=== PATIENT | female | born 1985 | race African-American/Black ===

== ENCOUNTER 2017-02-08 17:16 | Emergency (ER) | payer MEDICAID ==
--- NOTE | 2017-02-08 17:46 | ER Document Report ---
ED Medical Screen (RME) - General Stated Complaint: CHEST PAIN Time seen by provider: 17:43 Mode of Arrival: Ambulatory Information source: Patient Notes: 31-year-old female presents to ED for chest pain tightness with difficulty breathing seems her right hand is also painful. States she also has upper back pain for the last 4 days. Denies any history of asthma. She is on Depo is having vaginal spotting I have greeted and performed a rapid initial assessment of this patient. A comprehensive ED assessment and evaluation of the patient, analysis of test results and completion of medical decision making process will be conducted by an additional ED providers. TRAVEL OUTSIDE OF THE [place] IN LAST 30 DAYS: No - Related Data Allergies/Adverse Reactions: No Known Allergies Allergy (Verified 12/10/15 11:40) Past Medical History Pulmonary Medical History: Denies: Hx Tuberculosis Past Surgical History: Reports: Hx Orthopedic Surgery - left knee. Denies: Hx Appendectomy, Hx Bowel Surgery, Hx Section, Hx Cholecystectomy, Hx Coronary Artery Bypass Graft, Hx Gastric Bypass Surgery, Hx Herniorrhaphy, Hx Hysterectomy, Hx Mastectomy, Hx Pacemaker, Hx Tonsillectomy, Hx Tubal Ligation - Immunizations Hx Diphtheria, Pertussis, Tetanus Vaccination: Yes Physical Exam - Vital signs Vitals: Temp Pulse Resp BP Pulse Ox 99.3 F 77 20 137/80 H 100 02/08/17 17:40 02/08/17 17:40 02/08/17 17:40 02/08/17 17:40 02/08/17 17:40 Course - Vital Signs Vital signs: Temp Pulse Resp BP Pulse Ox 99.3 F 77 20 137/80 H 100 02/08/17 17:40 02/08/17 17:40 02/08/17 17:40 02/08/17 17:40 02/08/17 17:40
[2017-02-08 18:29] LABS: ABSOLUTE BASOPHILS # (AUTO) 0.1 10^3/uL (0.0-0.2); ABSOLUTE EOSINOPHILS # (AUTO) 0.2 10^3/uL (0.0-0.6); ABSOLUTE LYMPHOCYTES (AUTO) 2.7 10^3/uL (0.5-4.7); ABSOLUTE MONOCYTES (AUTO) 0.4 10^3/uL (0.1-1.4); ABSOLUTE NEUT (AUTO) 4.7 10^3/uL (1.7-8.2); BASOPHILS % (AUTO) 1.1 % (0-2); EOSINOPHILS % (AUTO) 2.9 % (0-6); HEMATOCRIT 43.7 % (36.0-47.0); HEMOGLOBIN 14.5 g/dL (12.0-15.5); HGB HCT DIFFERENCE -0.2; LYMPHOCYTES % (AUTO) 33.1 % (13-45); MEAN CORPUSCULAR HEMOGLOBIN 29.6 pg (27.0-33.4); MEAN CORPUSCULAR HGB CONC 33.2 g/dL (32.0-36.0); MEAN CORPUSCULAR VOLUME 89 fl (80-97); MONOCYTES % (AUTO) 4.8 % (3-13); RED BLOOD COUNT 4.88 10^6/uL (3.72-5.28); RED CELL DISTRIBUTION WIDTH 12.8 % (11.5-14.0); SEGMENTED NEUTROPHILS % (AUTO) 58.1 % (42-78)
[2017-02-08 18:55] LABS: ALANINE AMINOTRANSFERASE 28 U/L (9-52); ALBUMIN 4.4 g/dL (3.5-5.0); ALKALINE PHOSPHATASE 59 U/L (38-126); ANION GAP 14 (5-19); ASPARTATE AMINO TRANSFERASE 19 U/L (14-36); BILIRUBIN,DIRECT 0.3 mg/dL (0.0-0.4); BILIRUBIN,TOTAL 0.6 mg/dL (0.2-1.3); BLOOD UREA NITROGEN 13 mg/dL (7-20); CALCIUM 10.1 mg/dL (8.4-10.2); CARBON DIOXIDE 21 mmol/L (22-30); CHLORIDE 111 mmol/L (98-107); CREATINE KINASE 182 U/L (30-135); CREATININE RESULT 1.05 mg/dL (0.52-1.25); GLUCOSE 88 mg/dL (75-110); POTASSIUM 4.2 mmol/L (3.6-5.0); SODIUM 145.9 mmol/L (137-145); TOTAL PROTEIN 7.1 g/dL (6.3-8.2)
[2017-02-08 19:04] LABS: CREATINE KINASE MB < 0.22 ng/mL (<4.55); TROPONIN I < 0.012 ng/mL
--- NOTE | 2017-02-08 20:26 | EKG REPORT ---
SEVERITY:- NORMAL ECG - SINUS RHYTHM : Confirmed by: Adelina Case 08-Feb-2017 20:25:12
[2017-02-08] MEDS ORDERED: ACETAMINOPHEN 325 MG TABLET PO ONE (20:54)
[2017-02-08] MEDS ORDERED: CYCLOBENZAPRINE HCL 10 MG TABLET PO ONE (23:25)
[2017-02-08] MEDS ORDERED: NAPROXEN 250 MG TABLET PO ONE (23:26)
[2017-02-08] MEDS ORDERED: HYDROCODONE/ACETAMINOPHEN 5-325 MG TABLET PO ONE (23:26)
--- NOTE | 2017-02-08 23:32 | ER Document Report ---
ED General - General Chief Complaint: Chest Pain Stated Complaint: CHEST PAIN Time seen by provider: 22:45 Mode of Arrival: Ambulatory Information source: Patient, [facility] Records Notes: This 31-year-old female patient comes in for treatment complaining of one-week history of anterior chest pain and tightness with difficulty breathing, right hand painful, and pain in her mid upper back. 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 She had been out of work for over a month due to transportation issues which she finally resolved. She does get the Depo shot and is due in one to 2 weeks for her next dose. She does not smoke. TRAVEL OUTSIDE OF THE [place] 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 [employer] Lives with: Friend Family History: Reviewed & Not Pertinent Patient has suicidal ideation: No Patient has homicidal ideation: No - Medical History Medical History: Negative Past Surgical History: Reports: Hx Orthopedic Surgery - left knee - Immunizations Hx Diphtheria, Pertussis, Tetanus Vaccination: Yes Review of Systems - Review of Systems Constitutional: No symptoms reported EENT: No symptoms reported Cardiovascular: See HPI Respiratory: No symptoms reported Gastrointestinal: No symptoms reported Genitourinary: No symptoms reported Female Genitourinary: No symptoms reported, Last menstrual period - On the Depo shot Musculoskeletal: See HPI, Back pain Skin: No symptoms reported Hematologic/Lymphatic: No symptoms reported Neurological/Psychological: No symptoms reported Physical Exam - Vital signs Vitals: Temp Pulse Resp BP Pulse Ox 99.3 F 77 20 137/80 H 100 02/08/17 17:40 02/08/17 17:40 02/08/17 17:40 02/08/17 17:40 02/08/17 17:40 Interpretation: Normal - General General appearance: Appears well, Alert In distress: None - HEENT Head: Normocephalic, Atraumatic Eyes: Normal Pupils: PERRL Neck: Normal - Respiratory Respiratory status: No respiratory distress Chest status: Tender Breath sounds: Normal Chest palpation: Tender - Tender to palpate the anterior chest wall - Cardiovascular Rhythm: Regular Heart sounds: Normal auscultation Murmur: No - Abdominal Inspection: Normal Bowel sounds: Normal Tenderness: Tender - Minimally tender in the lower anterior abdominal muscle wall. - Back Back: Tender - Tenderness in the interscapular thoracic back muscles and some tenderness in the lumbar back muscles - Extremities General upper extremity: Other - Right hand muscles and the thenar region are little bit tender General lower extremity: Normal inspection - Neurological Neuro grossly intact: Yes - Psychological Associated symptoms: Normal affect, Normal mood - Skin Skin Temperature: Warm Skin Moisture: Dry Skin Color: Normal Course - Vital Signs Vital signs: Temp Pulse Resp BP Pulse Ox 99.3 F 77 20 137/80 H 100 02/08/17 17:40 02/08/17 17:40 02/08/17 17:40 02/08/17 17:40 02/08/17 17:40 - Laboratory Result Diagrams: 02/08/17 18:15 02/08/17 18:15 Laboratory results interpreted by me: 02/08/17 18:15 Sodium 145.9 H Chloride 111 H Carbon Dioxide 21 L Creatine Kinase 182 H - Diagnostic Test Radiology reviewed: Image reviewed, Reports reviewed - Chest x-ray is unremarkable - EKG Interpretation by Me EKG shows normal: Sinus rhythm, [place], Intervals, QRS Complexes, ST-T Waves Rate: Normal - 81 Rhythm: NSR Discharge - Discharge Clinical Impression: Hand pain, right, Muscle strain Chest pain Qualifiers: Chest pain type: unspecified Qualified Code(s): R07.9 - Chest pain, unspecified Back pain Qualifiers: Back pain location: thoracic back pain Chronicity: acute Back pain laterality: bilateral Qualified Code(s): M54.6 - Pain in thoracic spine Condition: Stable Disposition: HOME, SELF-CARE Additional Instructions: Muscle Strain: You have strained the muscles in your chest wall, back and hands. This often occurs with repetative muscle straining.. The seriousness of a strain varies. Some strains heal within days, others cause problems for months. The usual treatment of a muscle strain is rest. Call the doctor immediately if pain or swelling becomes severe, or if numbness or discoloration develop. Overuse Syndrome: Overuse syndrome or repetitive-motion syndrome is inflammation caused by repeated activity. Many daily activities cause minor, microscopic injury to muscles, tendons, and ligaments. With adequate rest, the tissues repair themselves. But sometimes a repetitive movement or new activity is too much for the tissue to tolerate, and inflammation results. Examples of overuse syndrome are tendonitis, bursitis, muscle inflammation, and joint capsulitis. Rest. Stop or decrease the activity that created the problem. You may need a sling or splint. For the first couple of days after symptoms begin, ice packs can be helpful. When the symptoms start improving, you can switch to hot packs followed by stretching and motion of the painful area. Antiinflammatory medicine such as ibuprofen can help. Call the doctor or return if there is fever, increasing pain, spreading redness, numbness, weakness, or other significant change. TAKE THE MEDICATIONS PRESCRIBED. IF THE MUSCLE RELAXER MAKE YOU DROWSY, THEN ONLY TAKE IT AFTER WORK AND AT BEDTIME. TRY TO REST YOUR MUSCLES MUCH POSSIBLE. FOLLOW UP WITH A LOCAL MEDICAL DOCTOR IF NOT IMPROVING. Prescriptions: Cyclobenzaprine HCl [Flexeril 5 mg Tablet] 5 mg PO TID PRN #15 tablet PRN Reason: Naproxen [Naprosyn 375 Mg Tablet] 375 mg PO BID #20 tablet
[2017-02-09 00:12] VITALS: BP 128/78
== END 2017-02-08 23:50 | disposition home or self-care (01) ==
LOC: ER 17:16
DX: T14.8 Other injury of unspecified body region (principal); X58.XXXA Exposure to other specified factors, initial encounter; R07.89 Other chest pain; R06.00 Dyspnea, unspecified; M79.641 Pain in right hand; M54.6 Pain in thoracic spine; Z79.3 Long term (current) use of hormonal contraceptives
CPT/HCPCS: 93005; 99284; 36415; 82553; 82550; 84703; 85025; 80053; 84484; 85379; 71010; 93010; J3490 ×3

== ENCOUNTER 2019-07-27 15:06 | Outpatient (CLI) | payer MEDICAID ==
[2019-07-27 15:53] LABS: APPEARANCE,URINE CLOUDY; BILIRUBIN,URINE NEGATIVE (NEGATIVE); COLOR,URINE YELLOW; GLUCOSE, URINE NEGATIVE (NEGATIVE); KETONES,URINE NEGATIVE (NEGATIVE); LEUKOCYTE ESTERASE,URINE SMALL (NEGATIVE); NITRITE,URINE NEGATIVE (NEGATIVE); PROTEIN,URINE 30 mg/dL (NEGATIVE); URINE SPECIFIC GRAVITY 1.023; UROBILINOGEN,URINE NEGATIVE mg/dL (<2.0)
[2019-07-27 16:13] LABS: URINE AMPHETAMINES SCREEN NEGATIVE; URINE BARBITURATES SCREEN NEGATIVE; URINE BENZODIAZEPINES SCREEN NEGATIVE; URINE METHADONE SCREEN NEGATIVE; URINE PHENCYCLIDINE SCREEN NEGATIVE
[2019-07-27 16:14] LABS: URINE COCAINE SCREEN NEGATIVE
[2019-07-27 16:17] LABS: URINE MARIJUANA (THC) SCREEN UNCONFIRMED POSITIVE
[2019-07-27 16:31] LABS: ABSOLUTE LYMPHOCYTES (AUTO) 1.5 10^3/uL (0.5-4.7); ABSOLUTE MONOCYTES (AUTO) 0.6 10^3/uL (0.1-1.4); ABSOLUTE NEUT (AUTO) 6.7 10^3/uL (1.7-8.2); BASOPHILS % (AUTO) 0.2 % (0-2); EOSINOPHILS % (AUTO) 0.6 % (0-6); HEMATOCRIT 38.2 % (36.0-47.0); HEMOGLOBIN 12.7 g/dL (12.0-15.5); MEAN CORPUSCULAR HEMOGLOBIN 28.7 pg (27.0-33.4); MEAN CORPUSCULAR HGB CONC 33.2 g/dL (32.0-36.0); MEAN CORPUSCULAR VOLUME 86 fl (80-97); MONOCYTES % (AUTO) 6.4 % (3-13); RED BLOOD COUNT 4.43 10^6/uL (3.72-5.28); SEGMENTED NEUTROPHILS % (AUTO) 75.8 % (42-78); TOTAL CELLS COUNTED % (AUTO) 100 %; WHITE BLOOD COUNT 8.9 10^3/uL (4.0-10.5)
[2019-07-27 16:51] LABS: PLATELET COUNT 92 10^3/uL (150-450)
--- NOTE | 2019-07-27 17:26 | Non Stress Test Report ---
Non Stress Test Datetime Report Generated by CPN: 07/27/2019 17:26 DEMOGRAPHIC Test Number: 1 EGA NST: 37.5 INDICATION Indication for Study: Ordered by Provider MONITORING Monitor Explained: Monitor Explained; Test Explained; Patient Verbalized Understanding Time on Monitor: 07/27/2019 15:33 Time off Monitor: 07/27/2019 16:30 NST Duration: 57 NST INTERVENTIONS NST Interventions: PO Hydration Physician Notified NST: A. Martinez CNM BABY A: [id number] BABY A Movement : Present Contraction Frequency : 2-5 FHR Baseline : 150 Accelerations : 15X15 Decelerations : None Variability : Moderate 6-25bpm NST Review: Meets Criteria for Reactive NST NST Review and Verified By : MARIA DE JESUS Torres Results: Reactive NST REPORT Report Trigger: Send Report
[2019-07-27 17:46] LABS: CHLAM PCR NOT DETECTED (NOT DETECT)
[2019-07-27 18:13] LABS: ALBUMIN 3.2 g/dL (3.5-5.0); ALKALINE PHOSPHATASE 149 U/L (38-126); ANION GAP 10 (5-19); ASPARTATE AMINO TRANSFERASE 22 U/L (14-36); BILIRUBIN,DIRECT 0.2 mg/dL (0.0-0.4); BILIRUBIN,TOTAL 0.3 mg/dL (0.2-1.3); BLOOD UREA NITROGEN 8 mg/dL (7-20); CALCIUM 9.7 mg/dL (8.4-10.2); CARBON DIOXIDE 18 mmol/L (22-30); CHLORIDE 108 mmol/L (98-107); GLUCOSE 90 mg/dL (75-110); POTASSIUM 4.2 mmol/L (3.6-5.0); TOTAL PROTEIN 5.8 g/dL (6.3-8.2); URIC ACID 5.5 mg/dL (2.5-6.2)
--- NOTE | 2019-07-27 18:13 | RADIOLOGY REPORT (SQ) ---
EXAM DESCRIPTION: U/S OB 14+ TRNABD 1GES W/O DOP COMPLETED DATE/TIME: 07/27/2019 5:50 pm REASON FOR STUDY: no care, dated by 2nd trimester us here COMPARISON: None. TECHNIQUE: Static and Dynamic grayscale imaging performed of gravid uterus using transabdominal appr oach. Additional selected color Doppler and spectral images recorded. All stored on PACS. LIMITATIONS: None. FINDINGS: FETUSES SEEN:1 EGA: 36 weeks 6 days Calculated using BPD,FL,HC,AC documented on images. No discrepancy with clinica l dates. HERON: 08/18/2019 EFW: 3,074 grams PERCENTILE: 61st STEPHANIE: 9.13 PLACENTA: Anterior grade 1 PRESENTATION: Cephalic. ANATOMY: HEART RATE: 149 beats per minute. FOUR CHAMBER HEART: Not confirmed THREE VESSEL CORD: Yes. CORD INSERTION: Not seen. KIDNEYS AND BLADDER: Visualized. Appear normal. STOMACH: Visualized. Appears normal. SPINE: Poorly seen. BRAIN AND LATERAL VENTRICLES: Poorly seen. OTHER: No other significant finding. MATERNAL ADNEXA: Maternal ovaries not visualized. CERVICAL LENGTH: Not seen. Closed. OTHER: No other significant finding. IMPRESSION: LIVING INTRAUTERINE . ESTIMATED GESTATIONAL AGE 36 weeks 6 days. No anomalies are seen. Evaluation is limited. Trimester of : Third trimester - 28 weeks to delivery. TECHNICAL DOCUMENTATION: JOB ID: [id number] [employer]- All Rights Reserved Reading location - IP/workstation name: [email or web address]
[2019-07-27 18:21] LABS: URINE CREATININE 218.8 mg/dL (16-327); URINE PROTEIN 8.9 mg/dL (<12)
[2019-07-29 07:36] LABS: HEPATITIS C VIRUS AB <0.1 s/co ratio (0.0-0.9)
[2019-07-30 07:06] LABS: HEPATITS B SURFACE ANTIGEN Negative (Negative)
== END 2019-07-27 19:19 | disposition home or self-care (01) ==
LOC: LC 15:06
PROVIDERS: ATTEND Obstetrics & Gynecology
DX: O47.1 False labor at or after 37 completed weeks of gestation (principal); Z3A.37 37 weeks gestation of pregnancy
CPT/HCPCS: 59025; 86900; 86901; 36415; 86850; 83615; 84156; 82570; 84550; 85025; 86762; 86592; 80053; 81001; 87081; 87340; 86701; 80307; 87491; 87591; 80361; 86803; 86804; 76805; G0480 ×2; 80349

== ENCOUNTER 2019-08-09 12:07 | Outpatient (CLI) | payer MEDICAID | END 2019-08-09 12:51 | disposition home or self-care (01) | LOC: LC 12:07 | PROVIDERS: ATTEND Student in an Organized Health Care Education/Training Program | PROC: 4A1HXCZ Monitoring of Products of Conception, Cardiac Rate, External Approach (ICD-10-PCS; principal; 2019-08-09) | DX: O99.333 Smoking (tobacco) complicating pregnancy, third trimester (principal); F17.210 Nicotine dependence, cigarettes, uncomplicated; Z3A.39 39 weeks gestation of pregnancy | CPT/HCPCS: 59025 ==

== ENCOUNTER 2019-08-13 05:54 | Inpatient (IN) | payer MEDICAID ==
--- NOTE | 2019-08-13 06:02 | Non Stress Test Report ---
Non Stress Test Datetime Report Generated by CPN: 08/13/2019 06:01 DEMOGRAPHIC EGA NST: 39.4 INDICATION Indication for Study: Gestational Hypertension; Other Indication for Study (NST) Other: Repeat NST MONITORING Monitor Explained: Monitor Explained; Test Explained; Patient Verbalized Understanding Time on Monitor: 08/09/2019 12:20 Time off Monitor: 08/09/2019 12:49 NST Duration: 29 NST INTERVENTIONS NST Interventions: PO Hydration Physician Notified NST: Tricia Delaorsa, CNM BABY A: [id number] BABY A Movement : Present Contraction Frequency : occasional FHR Baseline : 140 Accelerations : 15X15 Decelerations : None Variability : Moderate 6-25bpm NST Review: Meets Criteria for Reactive NST NST Review and Verified By : V Monk RN NST Results: Reactive NST REPORT Report Trigger: Send Report
[2019-08-13] MEDS ORDERED: RINGERS SOLUTION,LACTATED 1,000 ML IV PRN (06:09)
[2019-08-13] MEDS ORDERED: OXYTOCIN/NORMAL SALINE 20 UNIT/1,000 ML RTUINJ ONE (06:11)
[2019-08-13] MEDS ORDERED: MISOPROSTOL 0.2 MG TABLET ONE (06:11)
[2019-08-13] MEDS ORDERED: OXYTOCIN 10 UNIT/ML VIAL ONE (06:11)
[2019-08-13] MEDS ORDERED: LIDOCAINE 1% INJ-PF (10 MG/ML) 30 ML SDV ONE (06:11)
--- NOTE | 2019-08-13 06:29 | Admission Physical ---
Datetime Report Generated by CPN: 08/13/2019 06:29 CURRENT ADMISSION Chief Complaint: Uterine Contractions; Vaginal Bleeding Chief Complaint Other: at 38.6 wks EGA who presented with regular contractions and vaginal bleeding Admit Impression : Active Labor Admit Plan: Admit to Unit ALLERGIES Medication Allergies: No Medication Allergies: No Known Allergies (08/09/2019) Latex: No Latex Allergies OBSTETRICAL HISTORY EDC: 08/12/2019 00:00 : 2 Para: 1 Term: 1 : 0 SAB: 0 IAB: 0 Gestational Diabetes: No Rh Sensitization: No Incompetent Cervix: No GILLIAN: No Infertility: No ART Treatment: No Uterine Anomaly: No IUGR: Unknown Hx Previous C/S: No Macrosomia: Unknown Hx Loss/Stillborn: No PIH: Yes Hx : No Placenta Previa/Abruption: No Depression/PP Depression: No PTL/PROM: Unknown Post Hemorrhage: No Current Procedures: Ultrasound Obstetrical History Comments: G1 2011 vaginal pre-eclampsia g2 current, limited care SEE RECORDS Alcohol: No Marijuana : Yes Marijuana Frequency: Occasional Last Used: 04/16/2019 00:00 Cocaine: No Other Illicit Drugs: No Cigarettes: Current Some Day Smoker. [id number] Cigarette Frequency: < 5 per day Advised to Stop: Yes Cigarette Comments: last smoked a few days ago MEDICAL HISTORY Diabetes: No Blood Transfusion: No Pulmonary Disease (Asthma, TB): No Breast Disease: No Hypertension: Unknown [place] Surgery: No Heart Disease: No Hosp/Surgery: Yes Autoimmune Disorder: No Anesthetic Complications: No Kidney Disease: No Abnormal Pap Smear: No Neuro/Epilepsy: No Psychiatric Disorders: No Other Medical Diseases: No Hepatitis/Liver Disease: No Significant Family History: No Varicosities/Phlebitis: No Trauma/Violence : No Thyroid Dysfunction: No Medical History Comments: left knee surgery ligament surgery INFECTIOUS HISTORY Gonorrhea: No Genital Herpes: No Chlamydia: No Tuberculosis: No Syphilis: No Hepatitis: No HIV/AIDS Exposure: No Rash or Viral Illness: No HPV: No PHYSICAL EXAM General: Normal HEENT: Normal Neurologic: Normal Thyroid: Normal Heart: Normal Lungs: Normal Breast: Normal Back: Normal Abdomen: Normal Genitourinary Exam: Abnormal Extremities: Normal DTRs: Normal Pelvic Type: Adequate Vital Signs: Reviewed VAGINAL EXAM Dilatation: 5 Effacement: 90 Station: -1 Contraction Comments: Regular MEMBRANES Membranes: Ruptured FETUS A EGA: 40.1 Monitoring: External US FHR- Baseline: 135 Variability: Moderate 6-25bpm Accelerations: 15X15 Decelerations: None FHR Category: Category I Admit Comment: at 38.6 wks EGA who presented with regular contractions and vaginal bleeding to LDR. Preg complicated by gHTN and thrombocytopenia with last PLT count on 08/01/19 of 87K. She was given steriods and has pending appt with hematology for 08/14/19. ON arrival to unit, Cervix assessed at /-1 and clot at introitis but no active bleeding noted. -Admit to LDR -Obtain IV access. LR at 125 cc/hr -NPO -CEFM and toco -GBS negative -RH positive -Elevated b/p, not severe range. +1 edema BLE. PIH labs -Labs pending -Hx one prior without complication. -Anticipate PLANS FOR LABOR AND DELIVERY Labor and Delivery: None Pain Management: Medications; Epidural Feeding Preference: Formula Circumcision: Yes INFORMED CONSENT Informed Consent Obtained: Vaginal Delivery; Risks, Benefits and Alternatives Discussed Signature: with User ID: [email or web address] : with User ID: [email or web address]
[2019-08-13 06:38] LABS: ABSOLUTE EOSINOPHILS # (AUTO) 0.1 10^3/uL (0.0-0.6); ABSOLUTE LYMPHOCYTES (AUTO) 2.3 10^3/uL (0.5-4.7); ABSOLUTE MONOCYTES (AUTO) 0.7 10^3/uL (0.1-1.4); ABSOLUTE NEUT (AUTO) 8.2 10^3/uL (1.7-8.2); BASOPHILS % (AUTO) 0.3 % (0-2); EOSINOPHILS % (AUTO) 0.5 % (0-6); HEMATOCRIT 37.6 % (36.0-47.0); HEMOGLOBIN 12.4 g/dL (12.0-15.5); LYMPHOCYTES % (AUTO) 20.3 % (13-45); MEAN CORPUSCULAR HEMOGLOBIN 28.1 pg (27.0-33.4); MEAN CORPUSCULAR HGB CONC 32.9 g/dL (32.0-36.0); MEAN CORPUSCULAR VOLUME 85 fl (80-97); MONOCYTES % (AUTO) 6.5 % (3-13); SEGMENTED NEUTROPHILS % (AUTO) 72.4 % (42-78); TOTAL CELLS COUNTED % (AUTO) 100 %; WHITE BLOOD COUNT 11.3 10^3/uL (4.0-10.5)
[2019-08-13] MEDS ORDERED: FENTANYL CITRATE INJ/PF 100 MCG/2 ML AMPUL IV ONE (06:43)
[2019-08-13] MEDS ORDERED: FENTANYL CITRATE INJ/PF 100 MCG/2 ML AMPUL ONE (06:49)
[2019-08-13 06:52] LABS: ALBUMIN 3.1 g/dL (3.5-5.0); ALKALINE PHOSPHATASE 144 U/L (38-126); ANION GAP 6 (5-19); ASPARTATE AMINO TRANSFERASE 17 U/L (14-36); BILIRUBIN,DIRECT 0.1 mg/dL (0.0-0.4); BILIRUBIN,TOTAL 0.3 mg/dL (0.2-1.3); BLOOD UREA NITROGEN 6 mg/dL (7-20); CARBON DIOXIDE 21 mmol/L (22-30); CHLORIDE 111 mmol/L (98-107); GLUCOSE 88 mg/dL (75-110); POTASSIUM 3.9 mmol/L (3.6-5.0); TOTAL PROTEIN 5.8 g/dL (6.3-8.2); URIC ACID 5.7 mg/dL (2.5-6.2)
[2019-08-13 06:53] LABS: PLATELET COUNT 84 10^3/uL (150-450)
[2019-08-13] MEDS ORDERED: NALBUPHINE HCL INJ 10 MG/1 ML AMPULE INJ ONE (08:58)
[2019-08-13] MEDS ORDERED: NALBUPHINE HCL INJ 10 MG/1 ML AMPULE ONE (08:59)
[2019-08-13] MEDS ORDERED: OXYTOCIN/NORMAL SALINE 20 UNIT/1,000 ML RTUINJ IV PRN ×2 (10:50→11:33)
[2019-08-13] MEDS ORDERED: ZOLPIDEM TARTRATE 5 MG TABLET PO PRN (11:33)
[2019-08-13] MEDS ORDERED: MEASLES,MUMPS&RUBELLA VACC/PF 0.5 ML VIAL SUBCUT PRN (11:33)
[2019-08-13] MEDS ORDERED: DIPH/PERTUSS(ACELL)/TETANUS VAC/PF 0.5 ML SYR (>=10YO) IM PRN (11:33)
[2019-08-13] MEDS ORDERED: DIBUCAINE 1% OINTMENT 56 GM TP PRN (11:33)
[2019-08-13] MEDS ORDERED: BENZOCAINE/MENTHOL AEROSOL SPRAY 56 ML TOP PRN (11:33)
[2019-08-13] MEDS: ACETAMINOPHEN WITH CODEINE #3 TABLET PO PRN ×2 (15:29→19:36)
[2019-08-13] MEDS: IBUPROFEN 800 MG TABLET PO SCH ×3 (17:48→21:05)
[2019-08-13] MEDS: FERROUS SULFATE 325 MG TABLET PO SCH (17:52)
[2019-08-13] MEDS: DOCUSATE SODIUM 100 MG CAPSULE PO SCH (17:52)
[2019-08-14] MEDS: ACETAMINOPHEN WITH CODEINE #3 TABLET PO PRN ×5 (02:09→23:01)
[2019-08-14] MEDS: IBUPROFEN 800 MG TABLET PO SCH ×3 (05:03→21:46)
[2019-08-14 06:53] LABS: HEMATOCRIT 27.2 % (36.0-47.0); MEAN CORPUSCULAR HEMOGLOBIN 28.7 pg (27.0-33.4); MEAN CORPUSCULAR HGB CONC 33.7 g/dL (32.0-36.0); MEAN CORPUSCULAR VOLUME 85 fl (80-97); RED BLOOD COUNT 3.19 10^6/uL (3.72-5.28); WHITE BLOOD COUNT 13.4 10^3/uL (4.0-10.5)
[2019-08-14 07:38] LABS: HEMOGLOBIN 9.2 g/dL (12.0-15.5); PLATELET COUNT 66 10^3/uL (150-450)
[2019-08-14] MEDS: PRENATAL VITAMIN W DHA CAPSULE PO SCH (09:35)
[2019-08-14] MEDS: SENNOSIDES/DOCUSATE 8.6-50 MG 1 EACH TABLET PO SCH (09:35)
[2019-08-14] MEDS: DOCUSATE SODIUM 100 MG CAPSULE PO SCH ×2 (09:35→17:52)
[2019-08-14] MEDS: FERROUS SULFATE 325 MG TABLET PO SCH ×2 (09:35→17:52)
--- NOTE | 2019-08-14 14:24 | PDOC PROGRESS REPORT ---
Subjective-OB Progress Note for:: 08/14/19 Subjective: reports bleeding slowing, pain controlled with current meds, denies needs Physical Exam (OB) Vital Signs: Temp Pulse Resp BP Pulse Ox 97.7 F 68 16 148/84 H 99 08/14/19 07:37 08/14/19 07:37 08/14/19 07:37 08/14/19 07:37 08/14/19 07:37 Intake & Output 08/13/19 08/14/19 08/15/19 06:59 06:59 06:59 Intake Total 600 Balance 600 Weight 79.832 kg - Abdomen Description: Soft, Round Hernia Present: No Fundal Description: Firm, Midline Fundal Height: u/u - u/2 - Abdominal Distension: No distension Tenderness: Nontender - Extremities Lower extremities: Brenda's sign - neg Ankle: Normal, Nontender Objective-Diagnostic Laboratory: 08/14/19 06:15 08/13/19 06:21 08/14/19 06:15 WBC 13.4 H RBC 3.19 L Hgb 9.2 L D Hct 27.2 L MCV 85 MCH 28.7 MCHC 33.7 RDW 13.0 Plt Count 66 L Assessment and Plan(PN) - Time Spent with Patient Time with patient: Less than 15 minutes Medications reviewed and adjusted accordingly: Yes - Disposition Anticipated Discharge: Home Within: within 24 hours
[2019-08-15] MEDS: IBUPROFEN 800 MG TABLET PO SCH (05:43)
[2019-08-15] MEDS: ACETAMINOPHEN WITH CODEINE #3 TABLET PO PRN (07:42)
[2019-08-15 08:13] LABS: ABSOLUTE LYMPHOCYTES (AUTO) 2.3 10^3/uL (0.5-4.7); ABSOLUTE MONOCYTES (AUTO) 0.6 10^3/uL (0.1-1.4); ABSOLUTE NEUT (AUTO) 7.6 10^3/uL (1.7-8.2); BASOPHILS % (AUTO) 0.4 % (0-2); EOSINOPHILS % (AUTO) 0.4 % (0-6); HEMATOCRIT 28.6 % (36.0-47.0); HEMOGLOBIN 9.6 g/dL (12.0-15.5); MEAN CORPUSCULAR HEMOGLOBIN 29.1 pg (27.0-33.4); MEAN CORPUSCULAR HGB CONC 33.7 g/dL (32.0-36.0); MEAN CORPUSCULAR VOLUME 86 fl (80-97); MONOCYTES % (AUTO) 5.8 % (3-13); RED BLOOD COUNT 3.31 10^6/uL (3.72-5.28); RED CELL DISTRIBUTION WIDTH 13.3 % (11.5-14.0); SEGMENTED NEUTROPHILS % (AUTO) 71.4 % (42-78); TOTAL CELLS COUNTED % (AUTO) 100 %; WHITE BLOOD COUNT 10.6 10^3/uL (4.0-10.5)
[2019-08-15 08:39] VITALS: BP 126/70
[2019-08-15 08:42] LABS: PLATELET COUNT 97 10^3/uL (150-450)
[2019-08-15] MEDS: PRENATAL VITAMIN W DHA CAPSULE PO SCH (09:16)
[2019-08-15] MEDS: DOCUSATE SODIUM 100 MG CAPSULE PO SCH (09:16)
[2019-08-15] MEDS: SENNOSIDES/DOCUSATE 8.6-50 MG 1 EACH TABLET PO SCH (09:16)
[2019-08-15] MEDS: FERROUS SULFATE 325 MG TABLET PO SCH (09:16)
--- NOTE | 2019-08-15 14:06 | PDOC DISCHARGE SUMMARY ---
Impression - Admit/DC Date/PCP Admission Date/Primary Care Provider: 08/13/19 06:07 THONY DUNCAN MD Discharge Date: 08/15/19 - Discharge Diagnosis (1) Limited care Is this a current diagnosis for this admission?: Yes (2) Gestational hypertension Is this a current diagnosis for this admission?: Yes (3) Drug use affecting Is this a current diagnosis for this admission?: Yes (4) Smoker Is this a current diagnosis for this admission?: Yes (5) Thrombocytopenia affecting Is this a current diagnosis for this admission?: Yes (6) Delivery normal Is this a current diagnosis for this admission?: Yes (7) Acute blood loss anemia Is this a current diagnosis for this admission?: Yes (8) Perineal laceration during delivery, delivered Is this a current diagnosis for this admission?: Yes - Additional Information Resuscitation Status: Full Code Discharge Diet: As Tolerated, Regular Discharge Activity: Activity As Tolerated, Balance Activity w/Rest, No Lifting Over 10 Pounds, Pelvic Rest, No tub bath, Walk Frequently Referrals: THONY DUNCAN MD [Primary Care Provider] - Prescriptions: Ibuprofen [Motrin 800 mg Tablet] 800 mg PO Q8HP PRN #30 tablet PRN Reason: Abdominal Cramping Docusate Sodium [Colace 100 mg Capsule] 100 mg PO BID #60 capsule Ferrous Sulfate [Feosol 325 mg Tablet] 325 mg PO BID #60 tablet Butalb/Acetaminophen/Caffeine [Fioricet (50-325-40 mg) Tablet] 1 - 2 tab PO Q4H #10 tab Home Medications: Vitamin [-U Multiple Vitamin Capsule] 1 cap PO DAILY 07/27/19 Butalb/Acetaminophen/Caffeine [Fioricet (50-325-40 mg) Tablet] 1 - 2 tab PO Q4H #10 tab 08/15/19 Docusate Sodium [Colace 100 mg Capsule] 100 mg PO BID #60 capsule 08/15/19 Ferrous Sulfate [Feosol 325 mg Tablet] 325 mg PO BID #60 tablet 08/15/19 Ibuprofen [Motrin 800 mg Tablet] 800 mg PO Q8HP PRN #30 tablet 08/15/19 Additional Information: needs f/u at [facility] in 2 days for bp check and CBC. RTC earlier prn Results Laboratory Results: WBC 10.6 10^3/uL (4.0-10.5) H 08/15/19 07:41 RBC 3.31 10^6/uL (3.72-5.28) L 08/15/19 07:41 Hgb 9.6 g/dL (12.0-15.5) L 08/15/19 07:41 Hct 28.6 % (36.0-47.0) L 08/15/19 07:41 MCV 86 fl (80-97) 08/15/19 07:41 MCH 29.1 pg (27.0-33.4) 08/15/19 07:41 MCHC 33.7 g/dL (32.0-36.0) 08/15/19 07:41 RDW 13.3 % (11.5-14.0) 08/15/19 07:41 Plt Count 97 10^3/uL (150-450) L 08/15/19 07:41 Lymph % (Auto) 22.0 % (13-45) 08/15/19 07:41 [place] % (Auto) 5.8 % (3-13) 08/15/19 07:41 Eos % (Auto) 0.4 % (0-6) 08/15/19 07:41 Baso % (Auto) 0.4 % (0-2) 08/15/19 07:41 Absolute Neuts (auto) 7.6 10^3/uL (1.7-8.2) 08/15/19 07:41 Absolute Lymphs (auto) 2.3 10^3/uL (0.5-4.7) 08/15/19 07:41 Absolute Monos (auto) 0.6 10^3/uL (0.1-1.4) 08/15/19 07:41 Absolute Eos (auto) 0.0 10^3/uL (0.0-0.6) 08/15/19 07:41 Absolute Basos (auto) 0.0 10^3/uL (0.0-0.2) 08/15/19 07:41 Seg Neutrophils % 71.4 % (42-78) 08/15/19 07:41 Sodium 137.5 mmol/L (137-145) 08/13/19 06:21 Potassium 3.9 mmol/L (3.6-5.0) 08/13/19 06:21 Chloride 111 mmol/L (98-107) H 08/13/19 06:21 Carbon Dioxide 21 mmol/L (22-30) L 08/13/19 06:21 Anion Gap 6 (5-19) 08/13/19 06:21 BUN 6 mg/dL (7-20) L 08/13/19 06:21 Creatinine 0.69 mg/dL (0.52-1.25) 08/13/19 06:21 Est GFR ( Amer) > 60 (>60) 08/13/19 06:21 Est GFR (MDRD) Non-Af > 60 (>60) 08/13/19 06:21 Glucose 88 mg/dL (75-110) 08/13/19 06:21 Uric Acid 5.7 mg/dL (2.5-6.2) 08/13/19 06:21 Calcium 9.0 mg/dL (8.4-10.2) 08/13/19 06:21 Total Bilirubin 0.3 mg/dL (0.2-1.3) 08/13/19 06:21 Direct Bilirubin 0.1 mg/dL (0.0-0.4) 08/13/19 06:21 Neonat Total Bilirubin Not Reportable 08/13/19 06:21 Neonat Direct Bilirubin Not Reportable 08/13/19 06:21 Neonat Indirect Bili Not Reportable 08/13/19 06:21 AST 17 U/L (14-36) 08/13/19 06:21 ALT 10 U/L (<35) 08/13/19 06:21 Alkaline Phosphatase 144 U/L (38-126) H 08/13/19 06:21 Lactate Dehydrogenase 166 U/L (120-246) 08/13/19 06:21 Total Protein 5.8 g/dL (6.3-8.2) L 08/13/19 06:21 Albumin 3.1 g/dL (3.5-5.0) L 08/13/19 06:21 RPR NONREACTIVE (NONREACTIVE) 08/13/19 06:21 Blood Type O POSITIVE 08/13/19 06:21 Antibody Screen NEGATIVE 08/13/19 06:21
[2019-08-15] MEDS ORDERED: BUTALB/ACETAMINOPHEN/CAFFEINE 1 TAB EACH PO ONE (14:30)
--- NOTE | 2019-08-16 11:15 | Delivery Summary ---
Del Sum A-C Datetime Report Generated by CPN: 08/16/2019 11:15 DELIVERY PERSONNEL DELIVERY PERSONNEL: [id number] Delivery Doctor:: Jamshid Rodriguez MD Nurse Network Operations Technician Certified:: Deidra Keller CNM Labor and Delivery Nurse:: Natasha Mata RN Labor and Delivery Nurse:: ANALY Kramer Nursery Nurse:: Diane Weston RN Student Observers:: Jony ANNA RN Phone Triage Specialist/DAMASCENER: Shraddha Dixon, CUSTOMER SERVICE CASHIER Additional Personnel: : Karen Montez RN MATERNAL INFORMATION Delivery Anesthesia: None Medications After Delivery: Pitocin Bolus-Please Comment; Pitocin Drip 20 Units/1000ml NSS Delivery QBL: 300 Maternal Complications: None LABOR SUMMARY EDC: 08/12/2019 00:00 No. Babies in Womb: 1 Attempted: No Labor Anesthesia: IV Sedation LABOR INFORMATION Reason for Induction: Not Applicable Onset of Labor: 08/13/2019 02:00 Complete Dilatation: 08/13/2019 11:16 Oxytocin: N/A Group B Beta Strep: 1 NO GROUP B STREPTOCOCCUS RECOVERED Antibiotics # of Doses: 0 Steroids Given: None Reason Steroids Not Administered: Not Applicable MEMBRANES Membranes Rupture Method: Artificial (Annotations: forebag ruptured) Membranes Rupture Method: Spontaneous Rupture of Membranes: 08/13/2019 05:45 Length of Rupture (hr): 5.70 Amniotic Fluid Color: Clear STAGES OF LABOR Stage 1 hr: 9 Stage 1 min: 16 Stage 2 hr: 0 Stage 2 min: 11 VAGINAL DELIVERY Episiotomy: None Laceration #1: Perineal; Vaginal Laceration Extension #1: Second Degree Laceration Repair: Yes Laceration Repair Note: repaired in two layers with 20.vicryl Sponge Count Correct: N/A Sharps Count Correct: N/A BABY A INFORMATION Delivery Date/Time: 08/13/2019 11:27 Method of Delivery: Method of Delivery: Vaginal (Annotations: Data stored by [facility] on behalf of user) Born in Route : No : N/A Forceps: N/A Vacuum Extraction: Successful Shoulder Dystocia : No PRESENTATION/POSITION BABY A Presentation: Cephalic Presentation: Cephalic Presentation: Cephalic Cephalic Presentation: Vertex Vertex Position: DIRECT OP Breech Presentation: N/A PLACENTA INFORMATION BABY A Placenta Method of Delivery: Spontaneous Placenta Method of Delivery: Spontaneous Placenta Status: Delivered SCORES BABY A Heart Rate 1 min: >100 bpm Resp Effort 1 min: Slow, Irregular Reflex Irritability 1 min: Cough or Sneeze or Pulls Away Muscle Tone 1 min: Some Flexion of Extremities Color 1 min: Body [place], Extremities Blue Resuscitation Effort 1 min: Tactile Stimulation SCORE 1 MIN: 7 Heart Rate 5 min: >100 bpm Resp Effort 5 min: Good Cry Reflex Irritability 5 min: Cough or Sneeze or Pulls Away Muscle Tone 5 min: Active Motion Color 5 min: Body [place], Extremities Blue SCORE 5 MIN: 9 INFORMATION BABY A Gestational Age at Delivery: 40.1 Gestational Status: Full Term- 39- 40.6 Weeks Infant Outcome : Liveborn Infant Condition : Stable Infant Sex: Male Sex: Male IDENTIFICATION BABY A Verification Date/Time: 08/13/2019 11:39 ID Band Number: [id number] Mother's Name Verified: Yes Infant RN Verifying : S SHOSHANA, RN Additional Verifying Personnel: F DIXON, ST WEIGHT/LENGTH BABY A Infant Birthweight (gm): 2740 Weight (lb): 6 Weight (oz): 1 Length (in): 19.50 Length (cm): 49.53 CORD INFORMATION BABY A No. Cord Vessels: 3 Nuchal Cord : N/A Cord Blood Taken: Yes-For Eval (Mom's Blood Type - or O+) Infant Suction: Mouth; Nose ASSESSMENT BABY A Infant Complications: Extended Bradycardia Physical Findings at Delivery: Within Normal Limits Infant Respirations: Appears Normal Skin to Skin: Yes Skin to Skin Time (min): 45 Hemodialysis Charge Nurse/ALS Called : No Care By: Jacquelin WESTON RN Transferred To: Remains with Mother BABY B INFORMATION : N/A SIGNATURES Signature: with User ID: [email or web address]
== END 2019-08-15 16:15 | disposition home or self-care (01) | DRG 806 ==
LOC: LC 05:54 → LR 06:07 → 2S 14:25
PROVIDERS: ADMIT Obstetrics & Gynecology; ATTEND Obstetrics & Gynecology
PROC: 10D07Z6 Extraction of Products of Conception, Vacuum, Via Natural or Artificial Opening (ICD-10-PCS; principal; 2019-08-13)
PROC: 0KQM0ZZ Repair Perineum Muscle, Open Approach (ICD-10-PCS; 2019-08-13)
PROC: 10907ZC Drainage of Amniotic Fluid, Therapeutic from Products of Conception, Via Natural or Artificial Opening (ICD-10-PCS; 2019-08-13)
PROC: 0HQ9XZZ Repair Perineum Skin, External Approach (ICD-10-PCS; 2019-08-13)
DX: O13.4 Gestational [pregnancy-induced] hypertension without significant proteinuria, complicating childbirth (principal); O99.12 Other diseases of the blood and blood-forming organs and certain disorders involving the immune mechanism complicating childbirth; Z37.0 Single live birth; D69.6 Thrombocytopenia, unspecified; O99.324 Drug use complicating childbirth; O99.334 Smoking (tobacco) complicating childbirth; F17.210 Nicotine dependence, cigarettes, uncomplicated; F12.90 Cannabis use, unspecified, uncomplicated; O70.1 Second degree perineal laceration during delivery; O76 Abnormality in fetal heart rate and rhythm complicating labor and delivery; O99.02 Anemia complicating childbirth; Z3A.38 38 weeks gestation of pregnancy; Z71.6 Tobacco abuse counseling
CPT/HCPCS: 36415; 80053; 83615; 84550; 85025; 85027; 86592; 86850; 86900; 86901; 88307; J2300; J2590; J3010; J3490